=== PATIENT | male | born 1950 | race Caucasian/White ===

== ENCOUNTER 2016-10-23 10:58 | Outpatient (CLI) | payer MEDICARE, OTHER ==
[2016-10-23 17:04] LABS: ALT (SGPT) 23 U/L (8-55); AST (SGOT) 19 U/L (5-34); Albumin 4.1 g/dL (3.4-4.8); Alkaline Phosphatase 79 U/L (40-150); Anion Gap 15 mmol/L (10-20); BUN (Urea Nitrogen) 12 mg/dL (8.4-25.7); Bilirubin, Total 0.6 mg/dL (0.2-1.2); Calc. Creatinine Clearance 0 mL/min (70-130); Calcium 8.7 mg/dL (7.8-10.44); Carbon Dioxide 22 mmol/L (23-31); Cardiac Risk 3.4 (Less than 4.5); Chloride 112 mmol/L (98-107); Cholesterol 113 mg/dl (< 200 Desired); Estimated GFR-MDRD 63; Globulin 2.3 g/dL (2.4-3.5); Glucose 96 mg/dL (80-115); HDL Cholesterol 33 mg/dL (>60 Neg Risk); LDL Cholesterol, Calculated 69 mg/dL; Protein, Total 6.4 g/dL (5.8-8.1); Sodium 144 mmol/L (136-145); Triglycerides 56 mg/dL (Less than 150)
[2016-10-23 17:07] LABS: #Basophils 0.1 thou/uL (0.0-0.2); #Eosinphils 0.3 thou/uL (0.0-0.7); #Lymphocytes 4.2 thou/uL (1.20-3.40); #Monocytes 0.2 thou/uL (0.11-0.59); #Neutrophils 4.9 thou/uL (1.40-6.50); %Basophils 0.7 % (0.0-1.0); %Eosinophils 3.6 % (0.0-10.0); %Lymphocytes 43.6 % (21.0-51.0); %Monocytes 1.5 % (0.0-10.0); %Neutrophils 50.6 % (42.0-75.0); Hemoglobin 15.4 g/dL (14.0-18.0); Mean Corpuscular HGB CONC 32.1 g/dL (32.0-36.0); Mean Corpuscular Hemoglobin 29.2 pg (27.0-31.0); Mean Platelet Volume 7.4 fL (7.4-10.4); Platelet Count 146 thou/uL (130-400); RBC Distribution Width 15.4 % (11.5-14.5); Red Blood Cell (RBC) Count 5.26 mill/uL (4.70-6.10); White Blood Cell (WBC) Count 9.6 thou/uL (4.8-10.8)
[2016-10-23 17:26] LABS: PSA-Asymptomatic (SCREENING) 0.24 ng/mL (0-4.0); Thyroid Stimulating Hormone 4.6581 uIU/mL (0.35-4.94)
[2016-10-23 18:25] LABS: Albumin (w/Testosterone Panel) 4.2 g/dL
[2016-10-23 18:52] LABS: Sex Hormone Binding Globulin 45.8 nmol/L (11-78); Testosterone, Free 55.8 pg/mL (47-244); Testosterone, Total 342.2 ng/dL (221-716)
== END 2016-10-23 10:59 | disposition home or self-care (01) ==
LOC: LABLEX 10:58
PROVIDERS: ATTEND Family Medicine
DX: Z12.5 Encounter for screening for malignant neoplasm of prostate (principal); E78.5 Hyperlipidemia, unspecified; R79.89 Other specified abnormal findings of blood chemistry; I10 Essential (primary) hypertension; G47.33 Obstructive sleep apnea (adult) (pediatric); E29.1 Testicular hypofunction
CPT/HCPCS: 80053; 80061; 84270; 84403; 84443; 85025; G0103